=== PATIENT | female | born 1985 | race Caucasian/White ===

== ENCOUNTER 2022-02-09 17:37 | Emergency (ER) | payer OTHER, SELFPAY ==
[2022-02-09 17:55] VITALS: BP 153/100; PULSE 74; RESP 18; TEMP 36.4; O2SAT 100
--- NOTE | 2022-02-09 18:07 | ED.URI ---
HPI - URI/Sore Throat General Chief Complaint: Upper Respiratory Infection Stated Complaint: sorethroat,lt earache Time Seen by Provider: 02/09/22 18:01 Source: patient Mode of arrival: ambulatory Limitations: no limitations History of Present Illness HPI Narrative: Patient presents today with a 5 day history of sore throat and left ear pain. Denies any additional symptoms. Currently rates her pain 10 has been taking Tylenol and ibuprofen without relief. Related Data Home Medications Medication Instructions Recorded Confirmed hydroxychloroquine 200 mg tablet 200 mg PO DAILY 02/09/22 02/09/22 metformin 1,000 mg tablet 1,000 mg BID 02/09/22 02/09/22 omeprazole 20 mg capsule,delayed 20 mg PO DAILY 02/09/22 02/09/22 release sertraline 100 mg tablet 100 mg DAILY 02/09/22 02/09/22 Allergies Allergy/AdvReac Type Severity Reaction Status Date / Time No Known Allergies Allergy Verified 02/09/22 17:59 Review of Systems Review of Systems: CONSTITUTIONAL: Denies body aches, fever, chills, or sweats. EYES: Denies visual changes, redness, or discharge. ENT: Denies rhinorrhea, congestion. + sore throat, left ear pain CARDIOVASCULAR: Denies chest pain, palpitations, or edema. RESPIRATORY: Denies cough or dyspnea. GASTROINTESTINAL: Denies abdominal pain, nausea, vomiting, or diarrhea. GENITOURINARY: Denies dysuria or hematuria. SKIN: Denies rash, itching, or wounds. MUSCULOSKELETAL: Denies back pain, joint pain, or myalgia. NEUROLOGIC: Denies headache, numbness, tingling, or weakness. PSYCH: Denies depression or anxiety. [facility] Family History Family History Father Family history of obesity Hypertension Family history of diabetes mellitus in first degree relative Patient's father is Family history of heart disease in male family member before age 55, Onset Age: 51 Acute myocardial infarction Mother Depression Hypertension Patient's mother is in good health Family history of mental disorder Family history of alcoholism Family history of diabetes mellitus in first degree relative Sibling Patient's brother is Hypertension Grandparent Cerebrovascular accident Family history of Alzheimer's disease Diabetes mellitus Other Family history of cardiovascular disease Social History Social History Smoking status: Never smoker Alcohol intake: current Comments At time of signature, I have reviewed and agree with nursing past medical, surgical, social and family history unless otherwise noted. Please see nursing chart for further information. There is no relevant family history pertinent to the presenting complaint Exam Narrative: GENERAL: Well-appearing, well-nourished, and in no acute distress. HEAD: Normocephalic, atraumatic. EYES: EOMI. No redness or drainage. Conjunctivae normal. ENT: Mucous membranes pink and moist. Nares clear. No rhinorrhea. Bilateral middle ear effusions without evidence of bacterial infection. Throat erythematous with mild edema. No exudate Uvula midline. NECK: Normal AROM. Supple. Bilateral tonsillar lymphadenopathy. CHEST: No respiratory distress. Clear to auscultation. HEART: Regular rate and rhythm. No murmur appreciated. Normal peripheral pulses. EXTREMITIES: Normal range of motion. No edema. SKIN: Warm, dry, no rash. Capillary refill normal. Normal skin turgor. NEURO: No focal deficits. Alert and oriented x3. Gait steady. PSYCH: Normal affect. No signs of depression or anxiety. Course Course Level of Care: Express Care Visit Vital Signs Vital signs: Vital Signs Temperature 97.6 F 02/09/22 17:55 Pulse Rate 74 02/09/22 17:55 Respiratory Rate 18 02/09/22 17:55 Blood Pressure 153/100 H 02/09/22 17:55 Pulse Oximetry 100 02/09/22 17:55 Oxygen Delivery Room Air 02/09/22 17:55 Temperat
== END 2022-02-09 18:25 | disposition home or self-care (01) ==
PROVIDERS: Emergency Provider Nurse Practitioner; PCP Nurse Practitioner Family
DX: J02.0 Streptococcal pharyngitis (principal); M32.9 Systemic lupus erythematosus, unspecified; E28.2 Polycystic ovarian syndrome
CPT/HCPCS: 87880; 99213; G0463

== ENCOUNTER 2022-05-06 07:42 | Day surgery (SDC) | payer OTHER, SELFPAY ==
[2022-05-04 11:45] VITALS: BMI 38.5
[2022-05-04 12:33] VITALS: BMI 36.1
--- NOTE | 2022-05-06 08:40 | WPDHPUPDATE1 ---
History and Physical Update Update Date/Time: 05/06/22 08:40 History and Physical has been reviewed, including an updated exam of the patient. There are NO changes in the patient's condition. Risks, benefits, and alternatives have been discussed and questions answered. Patient agrees to proceed with procedure.
[2022-05-06 08:50] VITALS: BP 151/111; PULSE 68; RESP 18; TEMP 36.6; O2SAT 100
[2022-05-06 09:00] VITALS: BMI 37.4
[2022-05-06 09:35] VITALS: BP 131/66; PULSE 63; RESP 15; O2SAT 98
[2022-05-06 09:45] VITALS: BP 165/87; PULSE 77; RESP 20; O2SAT 100
[2022-05-06 09:55] VITALS: BP 145/74; PULSE 67; RESP 20; O2SAT 100
[2022-05-06 10:05] VITALS: BP 160/70; PULSE 66; RESP 16; O2SAT 98
[2022-05-06 10:15] VITALS: BP 102/85; PULSE 65; RESP 18; O2SAT 100
--- NOTE | 2022-05-06 10:16 | W.PM.PROC2 ---
Procedure Note - Detailed Date of Procedure 05/06/22 Pre-op Diagnosis Scalp Cyst x4 Post-op Diagnosis Other ( Scalp cyst x3) Procedure Performed excision of 0.5 cm scalp cyst x1 and 1 cm scalp cyst x2 Surgeon Sergio Lawson, DO Anesthesia Local ( 0.25% bupivacaine with epinephrine) Indications this is a 36-year-old woman who presented with multiple scalp cysts. She has had these before and occasionally has to have them removed. She has 1 that has drained on her recently and 2 others that are becoming larger and could possibly begin draining. Decision was made to proceed with excision of scalp cysts. Findings Three scalp cysts were removed. The 4th area of concern was near the patient's temporal region and this appeared to be a small benign-appearing mole. Patient did not want to have this 1 removed at this time. This will be watched and could be excised later if becoming larger. The right frontal cyst measured 0.5 cm. The left occipital and left parietal cyst each measured about 1 cm. All cysts were excised and sent to the lab for pathology. Description of Procedure Procedure as well as risks, benefits, and alternatives were discussed with the patient. Written consent was obtained and placed in chart prior to procedure. Patient was brought back to surgical suite. Time-out was done to confirm patient and procedure. Her scalp area was prepped and draped in sterile fashion using Betadine prep. 0.25% bupivacaine with epinephrine was infiltrated locally around each of the cysts. The right frontal cyst was excised 1st. Fifteen blade scalpel was used to make an incision on the skin directly over the cyst. A curved hemostat was then used to carefully dissect subcutaneously and get the cyst isolated. Cyst was carefully bluntly dissected free and removed completely. Hemostasis appeared adequate. The skin edge was reapproximated with a single 4-0 nylon simple interrupted suture. The left parietal cyst was then excised next. A 15 blade scalpel was used to make an incision over the skin directly over the cyst. The cyst was then bluntly dissected free using a curved hemostat. It was excised completely. Hemostasis appeared adequate. The skin edges were then reapproximated using 4-0 nylon simple interrupted suture x2. The left occipital cyst was excised lastly. A 15 blade scalpel was used to make an incision directly over the cyst. Blunt dissection was used to dissect the cyst free using a curved hemostat. The cyst was completely excised. Hemostasis appeared adequate. The skin edges were then reapproximated using 4-0 nylon simple interrupted suture x2. Triple antibiotic ointment was then applied. The patient was then transferred to recovery. Estimated Blood Loss 5 Pathology Yes ( Scalp cyst x3) Complications No immediate complications Condition Stable Disposition Same day [facility] Billing Surgery - Charge Forward: Surgery Billing
== END 2022-05-06 10:31 | disposition home or self-care (01) ==
PROVIDERS: PCP Nurse Practitioner Family; Visit Provider Surgery
PROC: (CPT 21011; principal; 2022-05-06 09:45)
PROC: (CPT 21011; 2022-05-06 09:45)
DX: L72.9 Follicular cyst of the skin and subcutaneous tissue, unspecified (principal)
CPT/HCPCS: 21011 ×3

== ENCOUNTER 2022-05-06 09:00 | Outpatient (NON) | payer OTHER, SELFPAY | END 2022-05-06 09:01 | disposition home or self-care (01) | PROVIDERS: PCP Nurse Practitioner Family; Visit Provider Surgery | DX: L72.12 Trichodermal cyst (principal) | CPT/HCPCS: 88305 ==

== ENCOUNTER 2024-11-22 13:16 | Emergency (ER) | payer OTHER, SELFPAY ==
[2024-11-22 13:22] VITALS: BP 136/92; PULSE 67; RESP 16; TEMP 36.6; O2SAT 99
--- OUTSIDE RECORDS SUMMARY | 2024-11-22 13:28 | XMS_ITS | Clinical Summary ---
Author Organization [facility] Address [address] [place] [address] Care Team Providers Care Web Development Director Name Role Phone Nidhi Lazo [facility] Primary [facility] Source Comments [facility],non-owned Affiliates and Associated Physician Practices is amultiple site organization consisting of ambulatory clinics and hospital sitesin [place], [place], [place] and [place]. This disclosure is being madepursuant to the Care Everywhere program and may not contain all information available regarding this patient. Last updated 17.[facility] Allergies Active Allergy Reactions Criticality Noted Date Comments Kd:Acetaminophen+Oxycodone+Tartrazine Itching Low 10/17/2013 Medications * Be aware that medications may not be up to date on this document. Alwaysverify current medications with the patient. traMADol (ULTRAM) 50 MG tablet Take 1 tablet by mouth every 4 hours as needed for Pain 10 tablet 11/15/2017 Active ketorolac (TORADOL) 10 MG tablet Take 1 tablet by mouth every 6 hours as needed for Pain 12 tablet 11/15/2017 Active Active Problems Problem Noted Date Diagnosed Date Peroneal tendinitis of right lower extremity Posterior tibial tendonitis, right 09/28/2017 Other fracture of right lowe r leg, initial encounter for closed fracture 10/17/2013 Closed displaced bimalleolar fracture of right l ower leg 10/12/2013 Dislocation of right ankle joint 10/06/2013 Painful orthopaedic hardware Social History Tobacco Use Types Packs/Day Years Used Date Smoking Tobacco: Never Smokeless Tobacco: Never Alcohol Use Standard Drinks/Week Comments Yes 0 (1 standard drink = 0.6 oz pur e alcohol) Comments No Sex and Gender Information Value Date Recorded Sex Assigned at Not on file 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 Gender Identity Not on file Sexual Orientation Not on file Last Filed Vital Signs Vital Sign Reading Time Taken Comments Blood Pressure 141/98 11/15/2017 9:30 AM CDT Pulse 70 11/15/2017 9:30 AM CDT Temperature 36.6 C (97.9 F) 11/15/2017 9:10 AM CDT Respiratory Rate 17 11/15/2017 9:30 AM CDT Oxygen Saturation 97% 11/15/2017 9:30 AM CDT Inhaled Oxygen Concentration - - Weight 89.4 kg (197 lb) 11/15/2017 7:04 AM CDT Height 152.4 cm (5') 11/15/2017 7:04 AM CDT Body Mass Index 38.47 11/15/2017 7:04 AM CDT Plan of Treatment Health Maintenance Due Date Last Done Comments LIPID TESTING 1983 HIV SCREENING 11/10/1998 HEPATITIS C SCREENING 11/06/2001 DTAP/TDAP/TD VACCINES (1 - Tdap) 11/10/2002 HEPATITIS B VACCINE (1 of 3 - 19+ 3-dose series) 11/10/2002 HPV VACCINE (1 - 3-dose SCDM series) 11/10/2010 MAMMOGRAM 12/02/2020 12/02/2018 DEPRESSION SCREENING 03/08/2024 COVID-19 VACCINE (1 - 2023-2 5 season) 2024 INFLUENZA VACCINE (#1) 2024 6, 12/12/2014 ZOSTER VACCINE (1 of 2) 11/10/2033 HIB VACCINE Aged Out No longer eligi ble based on patient's age to complete this topic MENINGOCOCCAL (Group B) VACCINE SHARED DECISION-MAKING Aged Out No longer eligible based on patient's age to complete this topic MENINGOCOCCAL GROUPS A/C/Y/W VACCINE Aged Out No longer eligible b ased on patient's age to complete this topic PNEUMOCOCCAL VACCINE Aged Out No long er eligible based on patient's age to complete this topic Insurance [facility]NA [facility] Advance Directives * Full Code (Latest Code Status on File) Date Activated Date Inactivated Comments 11/15/2017 6:47 AM 11/15/2017 10:55 AM Care Teams Web Development Director Relationship Specialty Start Date End Date Nidhi Lazo APRN-[facility]IE PCP - General 12/27/18
[2024-11-22 13:38] LABS: EDUAAPPEAR Clear; EDUABILI Negative (Negative); EDUABLOOD Negative (Negative); EDUACOLOR1 Light/Pale; EDUAGLUCOSE Negative (Negative); EDUAKETONE Negative (Negative); EDUALEUKO Trace (Negative); EDUANITRATE Negative (Negative); EDUAPH 7.0; EDUAPROTEIN Negative (Negative); EDUASPGRAVITY 1.010; EDUAUROBILI 0.2
--- NOTE | 2024-11-22 13:44 | ED.FEMALEGU ---
HPI - Female Genitourinary General Chief complaint: Urogenital-Female Stated complaint: possible kidney stone Time Seen by Provider: 11/22/24 13:30 Source: patient and RN notes reviewed Mode of arrival: ambulatory Limitations: no limitations History of Present Illness HPI Narrative: 39-year-old female presents Express Care complaining of urinary symptoms for 2 days. Patient reports having intermittent dysuria, increased frequency, nausea, low back pain. Patient denies any fevers, abdominal pain, flank pain, body aches, chills, vomiting, diarrhea, or blood in her urine. Patient denies any injuries to her back. Patient states the low back pain does not get worse with movements and stands constant. Patient has been taking ibuprofen to help with the pain with some relief. Patient denies any significant past medical history. Related Data Home Medications ?Medication ?Instructions ?Recorded ?Confirmed ?Last Taken ?Type hydroxychloroquine 200 mg tablet 200 mg PO 05/15/24 05/15/24 Unknown History lisinopril 20 mg tablet 20 mg PO 05/15/24 05/15/24 Unknown History metformin 1,000 mg tablet 1,000 mg PO DAILY 05/15/24 05/15/24 Unknown History omeprazole 40 mg capsule,delayed 40 mg PO 05/15/24 05/15/24 Unknown History release sertraline 50 mg tablet 50 mg PO DAILY 05/15/24 05/15/24 Unknown History Allergies Allergy/AdvReac Type Severity Reaction Status Date / Time hydrocodone AdvReac Intermediate Itching Verified 11/22/24 13:27 Review of Systems Review of Systems: CONSTITUTIONAL: Denies fever, chills, body aches, or sweats. EYES: Denies visual changes, redness, or discharge. ENT: Denies rhinorrhea, congestion, sore throat, or otalgia. CARDIOVASCULAR: Denies chest pain, palpitations, or edema. RESPIRATORY: Denies cough or dyspnea. GASTROINTESTINAL: Denies abdominal pain, nausea, vomiting, or diarrhea. GENITOURINARY: Positive for dysuria, increased frequency. Negative for hematuria, vaginal bleeding, vaginal discharge, vaginal irritation. SKIN: Denies rash or itching. MUSCULOSKELETAL: Positive for low back pain. Negative for flank pain, Joint pain, or myalgia. NEUROLOGIC: Denies headache, numbness, or weakness. PSYCHIATRIC: Denies anxiety or depression. All other systems reviewed are negative, except as documented in HPI. [facility] Past Medical History Medical History Screening mammogram for breast cancer Anxiety Lupus Endometriosis PCOS (polycystic ovarian syndrome) Surgical History Surgical History H/O dilation and curettage Hx laparoscopic cholecystectomy H/O excision of mass scalp cysts x 3 2013 History of excision of lesion back & left arm 2012 Family History Family History Father Family history of obesity Hypertension Family history of diabetes mellitus in first degree relative Patient's father is Family history of heart disease in male family member before age 55, Onset Age: 51 Acute myocardial infarction Mother Depression Hypertension Patient's mother is in good health Family history of mental disorder Family history of alcoholism Family history of diabetes mellitus in first degree relative Sibling Patient's brother is Hypertension Grandparent Cerebrovascular accident Family history of Alzheimer's disease Diabetes mellitus Ovarian cancer Other Family history of cardiovascular disease Social History Social History Social History: caffeine use: coffee Smoking status: Never smoker Second hand tobacco smoke exposure: No Alcohol intake: current Drinks per week: 1 Alcohol use details: 2 A MONTH Substance use: never Substance use type: does not use Do You Feel Safe in your Home?: Yes Lack of Transportation: No Lack of Food: Never True Current Housing: I Have Housing Concerned About Future Housing: No Difficulty Paying Gas/Electric Bills: No Difficulty Paying for Meds: No Currently Unemployed: No Education: Trade/Vocational Certificate Difficulty w/ Childcare or Family Care: No Living arrangements: with family Gender identity (if verbalized by the patient): Female Spiritual care concerns: No Comments At the time of my signature, I reviewed and agree with the nursing past medical, surgical, social, and family history. There is no relevant family history pertinent to the patient complaint. Exam Narrative: GENERAL: This is a well-nourished, well-developed adult, in no apparent distress. They are non ill-appearing, nontoxic appearing. HEAD: normocephalic, atraumatic. EYES: Sclera clear/white. Vision is grossly intact. Conjunctiva normal bilaterally. Extraocular movements intact. EARS: External ears normal,Hearing grossly intact. NOSE: External nose normal THROAT: Mucous membranes moist NECK: Normal range of motion CARDIOVASCULAR: Regular rate and rhythm. Normal S1-S2. No clicks, gallops, rubs, murmurs. RESPIRATORY: Respiratory rate normal, respiratory effort nonlabored, no respiratory distress. Lung sounds clear to auscultation throughout. Lung sounds equal bilaterally. No adventitious lung sounds. GASTROINTESTINAL: Abdomen soft, flat, non-tender, nondistended. Bowel sounds are active. No hepato-splenomegaly, or palpable masses. No guarding or rigidity. No rebound tenderness. SKIN: warm, Dry, intact with no suspicious lesions or rash, good texture and turgor. NEURO: awake, alert, and oriented to person, place and time. There were no obvious focal neurologic abnormalities. EXTREMITIES: No joint tenderness, effusion, or edema noted. BACK: Nontender without deformity. No CVA tenderness. Lumbar back up scan coordinator to palpate throughout. No spinal point tenderness, crepitus, or step-offs. Course Course Emergency Course: Portions of this record may have been created with voice recognition software Level of Care: Express Care Visit Vital Signs Vital signs: Vital Signs Temperature 97.9 F 11/22/24 13:22 Pulse Rate 67 11/22/24 13:22 Respiratory Rate 16 11/22/24 13:22 Blood Pressure 136/92 H 11/22/24 13:22 Pulse Oximetry 99 11/22/24 13:22 Oxygen Delivery Room Air 11/22/24 13:22 Temperature 97.9 F 11/22/24 13:22 Pulse Rate 67 11/22/24 13:22 Respiratory Rate 16 11/22/24 13:22 Blood Pressure 136/92 H 11/22/24 13:22 Pulse Oximetry 99 11/22/24 13:22 Oxygen Delivery Room Air 11/22/24 13:22 MDM - Female Genitourinary MDM Narrative Medical decision making narrative: Urine dipstick shows evidence of leukocytes. Urine culture pending . Patient's symptoms likely are related to an upper urinary tract infection. Will go ahead and treat her with cephalexin. No blood in urine. Her symptoms do not appear to be consistent with kidney stones. Lumbar back is tender to palpate the pain is not elicited with change in position. Patient is afebrile, no CVA tenderness, no tachycardia, patient hemodynamically stable. Discussed physical exam findings. Advised supportive measures and signs/symptoms to go to the ER. Pt is appropriate for outpt treatment and f/u. Differential Diagnosis Differential diagnosis: Likely urinary tract infection, cystitis and other (Pyelonephritis, lumbar back strain) Lab Data Attestation: I reviewed the patient's lab results. Labs: Lab Results 11/22/24 Range/Units 13:28 POC Urine Color Light/pale POC Urine Clarity Clear POC Urine pH 7.0 POC Ur Specif [place] 1.010 POC Urine Protein Negative (Negative) POC Ur Glucose (UA) Negative (Negative) POC Urine Ketones Negative (Negative) POC Urine Blood Negative (Negative) POC Urine Nitrite Negative (Negative) POC Urine Bilirubin Negative (Negative) POC Urine Urobilinogen 0.2 POC U Leukocyte Esteras Trace (Negative) Discharge Plan Discharge Clinical Impression: Urinary tract infection Patient Disposition: Home Condition: Stable Instructions: Antibiotic Form, Urinary Tract Infection in Women (ED) Additional Instructions: Take the antibiotic as prescribed The urine will be sent of for a culture to identify what type of bacteria is causing your infection. If the culture shows that the antibiotic will not get rid of your infection, you will be notified and a new antibiotic will be called in for you. Increase water intake you will need to follow up with your PCP 3-5 days. Go to the ER for any worsening symptoms, abdominal pain, fevers, nausea, vomiting, or any other concerns Patient Language: Belgian Prescriptions: New cephalexin 500 mg capsule 500 mg PO Q6H 7 Days Qty: 28 0RF No Action lisinopril 20 mg tablet 20 mg PO metformin 1,000 mg tablet 1,000 mg PO DAILY omeprazole 40 mg capsule,delayed release(DR/EC) 40 mg PO sertraline 50 mg tablet 50 mg PO DAILY hydroxychloroquine 200 mg tablet 200 mg PO Follow-up/Referrals: UNKNOWN,DOCTOR [Primary Care Provider] Time of Disposition: 13:40
== END 2024-11-22 13:46 | disposition home or self-care (01) ==
DX: N39.0 Urinary tract infection, site not specified (principal); E28.2 Polycystic ovarian syndrome; N80.9 Endometriosis, unspecified; F41.9 Anxiety disorder, unspecified
CPT/HCPCS: 81003; 87086; 99213; G0463

== ENCOUNTER 2024-12-27 14:46 | Outpatient (CLI) | payer OTHER, SELFPAY ==
--- NOTE | ~2024-12-27 | US_ITS ---
EXAMINATION: US pelvic complete w TV, 12/27/2024 14:48 CDT HISTORY: R10.20 - Pelvic and perineal pain unspecified side Comparison: None Technique: Hassan-scale and color Doppler images were obtained. Findings: Uterus: Uterus anteverted 7.9 x 3.5 x 4.7 cm. . Endometrium 7 mm. Right Ovary:Right ovary 2.7 x 1.5 x 3 cm, no adnexal mass, normal flow. Left Ovary: Left ovary 3 x 3.1 x 3.3 cm, no adnexal mass, normal flow. Free Fluid: None Impression: No acute abnormality. Reviewed, dictated and finalized at location P. Impression: No acute abnormality.
== END 2024-12-27 14:47 | disposition home or self-care (01) ==
LOC: MICIMG 14:48
PROVIDERS: PCP Student in an Organized Health Care Education/Training Program; Visit Provider Student in an Organized Health Care Education/Training Program
DX: R10.20 Pelvic and perineal pain unspecified side (principal)
CPT/HCPCS: 76830; 76856